=== PATIENT | male | born 2000 | race Two or more races ===

== ENCOUNTER 2020-01-20 16:33 | Emergency (ER) | payer SELFPAY ==
[2020-01-20 16:50] VITALS: BP 144/71; PULSE 70; RESP 18; TEMP 36.6; O2SAT 100
--- NOTE | 2020-01-20 17:01 | ED.UPPEXIN ---
HPI - Extremity Injury (Upper) General Chief Complaint: Extremity Injury, Upper Stated Complaint: L HAND PROBLEM X3D Time Seen by Provider: 01/20/20 16:54 History of Present Illness HPI narrative: A 19 y/o male presents to the ED with c/o left hand injury. Pt states that he has been unable to make a fist for the last 3 days. He denies any trauma or injury that could have caused the left hand injury. Pt reports left hand numbness and tingling, but denies left arm numbness, fever, chills, and any other pain. He does not note ever having these types of symptoms before. Pt has no other complaints at this time. complaint: injury to: left and hand Onset (ago): day(s) (3) Other Extremity Injury: Left: hand Other injuries: none Associated symptoms: numbness (Left hand) and other (Left hand tingling) Review of Systems Review of Systems: All systems reviewed & are unremarkable except as noted in HPI and below Constitutional: Constitutional: Denies chills and Denies fever(s) Musculoskeletal: Musculoskeletal: Denies back pain, Denies arthralgias and Denies neck pain Neurologic: Reports numbness (Reports: left hand; Denies: left arm) and Reports tingling (Left hand) PMFSH Past Medical History Medical History (Updated 01/20/20 @ 17:29 by Yesi Damian MD) Seasonal allergies Surgical History Surgical History (Updated 01/20/20 @ 17:05 by Elizabeth Richter) No pertinent past surgical history Social History Social History (Updated 01/20/20 @ 17:05 by Elizabeth Richter) Smoking status: Never smoker Gender identity (if verbalized by the patient): Male Exam Narrative: Exam Narrative: General appearance: Well-developed, well-nourished Skin: Normal color Head: Normocephalic, nontraumatic Eyes: Clear conjunctiva ENT: Oropharynx normal, ears normal, nose normal Neck: Supple, nontender Chest and respiratory: Airway patent, no respiratory distress, no accessory muscle use Heart: Regular rate/rhythm Abdomen: Soft, nontender, no organomegaly, quiet bowel sounds Vascular: Normal peripheral pulses, normal capillary refill. Musculoskeletal: Normal range of motion, nontender back, left hand showed inability to flex left thumb, and left index. Neurologic: Alert and oriented ?3, diminution of motor strength of the left index and left thumb. Decreased sensation of the left thumb, left index and lateral half of the middle finger Course Course Emergency Course: No change Consultations Consultation #1: dr pollard, call office tomorrow for follow-up Date: 01/20/20 Time: 17:24 Vital Signs Vital signs: Vital Signs Temperature 36.6 C 01/20/20 16:50 Pulse Rate 70 01/20/20 16:50 Respiratory Rate 18 01/20/20 16:50 Blood Pressure 144/71 H 01/20/20 16:50 Pulse Oximetry 100 01/20/20 16:50 Temperature 36.6 C 01/20/20 16:50 Pulse Rate 70 01/20/20 16:50 Respiratory Rate 18 01/20/20 16:50 Blood Pressure 144/71 H 01/20/20 16:50 Pulse Oximetry 100 01/20/20 16:50 MDM - Extremity Injury (Upper) MDM Narrative Medical decision making narrative: Radial nerve palsy is my concern. Patient denies any fever, chills, headache, trauma, pain. Differential Diagnosis Differential diagnosis: Likely other (Radial nerve palsy) Critical Care Time Critical Care Time Critical Care Time: No Discharge Plan Discharge Clinical Impression: Acute radial nerve palsy Qualifiers: Laterality: left Qualified Code(s): G56.32 - Lesion of radial nerve, left upper limb Patient Disposition: Home, Self-Care Condition: Stable Instructions: Radial Nerve Palsy (ED) Additional Instructions: Call Dr. Pollard in a.m. for appointment, left wrist splint Follow-u
[2020-01-20 17:45] VITALS: BP 118/75; PULSE 78; RESP 16; O2SAT 100
== END 2020-01-20 17:45 | disposition home or self-care (01) ==
PROVIDERS: Emergency Provider Emergency Medicine
DX: G56.32 Lesion of radial nerve, left upper limb (principal)
CPT/HCPCS: 99281